=== PATIENT | male | born 1980 | race Caucasian/White ===

== ENCOUNTER 2021-10-14 09:34 | Day surgery (SDC) | payer OTHER ==
[~2021-10-14] VITALS: Ht 177.8 cm; Wt 61.3 kg
[~2021-10-14 09:34] MED LIST: HYDROmorphone 2 MG/ML INJ. IVP PRN; IV RINGERS,LACTATED 1000ML 1,000 ML IV SCH; MORPHINE SULFATE 2 MG/ML INJ. IVP PRN; PROCHLORPERAZINE 10 MG/2 ML VIAL. IVP PRN; ceFAZolin SODIUM IV Push 1 GM VIAL. IVP PRN; fentaNYL PF VIAL 100 MCG/2 ML VIAL IVP PRN
[2021-10-14] MEDS ORDERED: HYDR200T5 PO (10:12)
[2021-10-14] MEDS ORDERED: DEXAMETHASONE SOD PHOS 4 MG/ML VIAL ONE (11:52)
[2021-10-14] MEDS ORDERED: PROPOFOL 10 MG/ML (20ML) VIAL. IV ONE (11:52)
[2021-10-14] MEDS ORDERED: LIDOCAINE 1% PF 5 ML VIAL. ONE (11:53)
[2021-10-14] MEDS ORDERED: fentaNYL PF VIAL 100 MCG/2 ML VIAL ONE (11:54)
[2021-10-14] MEDS ORDERED: ROCURONIUM 50 MG/5 ML VIAL. ONE (11:56)
[2021-10-14] MEDS ORDERED: ONDANSETRON PF 4 MG/2 ML VIAL. ONE (11:57)
[2021-10-14] MEDS ORDERED: KETOROLAC 30 MG/ML VIAL. ONE (11:57)
[2021-10-14] MEDS ORDERED: MIDAZOLAM HCL/PF 2 MG/2 ML VIAL. ONE (11:58)
[2021-10-14] MEDS ORDERED: NEOSTIGMINE METHYLSULFATE 5 MG/5 ML SYRINGE. ONE (11:59)
[2021-10-14] MEDS ORDERED: GLYCOPYRROLATE 1 MG/5 ML VIAL. ONE (11:59)
[2021-10-14] MEDS ORDERED: SEVOFLURANE 61 TO 120 MINUTES. IH ONE (12:46)
[2021-10-14] MEDS ORDERED: BUPIVACAINE-EPI 0.25%-1:200000 MPF 30 ML VIAL. ONE (13:14)
--- NOTE | 2021-10-14 13:31 | PDOC4 ---
Operative Note Operative Note Operative Note: Preoperative Diagnosis: Ventral hernia, umbilical hernia Postoperative Diagnosis: Same Procedure: Ventral hernia repair with mesh, umbilical hernia repair Surgeon: Marcus Family Caseworker: Derek MELISSA Anesthesia: General EBL: 10 mL Specimen: None Drains: None Complications: None Indication: The patient is a 41-year-old male who was referred with a small hernia noted superior to the umbilicus. Examination also revealed a small hernia at the umbilicus. The plan is to proceed with repair of both hernias. The risks of surgery were discussed which include bleeding, infection, recurrence, pain, anesthetic risk, potential need for additional surgery procedure. He understands and would like to proceed. Description: The patient was taken the operating room and placed supine on the operating table. General anesthesia was performed. The abdomen is prepped with ChloraPrep and draped with sterile towels, sheets, and an Ioban. A small vertical incision was made superior to the umbilicus at the location of the hernia. Cautery dissection was carried down to the fascia. The hernia was identified and consistent with a slit defect of the fascia. A preperitoneal plane was developed circumferentially with blunt dissection. A small Ventralex ST mesh was placed in this preperitoneal plane. The mesh was sutured into position with 0 Prolene in a horizontal mattress fashion. The fascial edges were then closed over the mesh with interrupted 0 Nurolon. A small curve infraumbilical incision was made in the skin with a scalpel. The umbilical tissue was elevated off the fascia exposing a very small defect. Placement of mesh would have required enlargement of the defect. We therefore elected for primary repair. The fascial edges were closed with interrupted 0 Nurolon sutures. The umbilicus was secured back to the fascia with 0 Vicryl. The subcutaneous tissue of both incision sites were approximated with 3-0 Vicryl. Skin was closed with 4-0 Monocryl and infiltrated with half percent Marcaine with epinephrine. Sterile dressings were applied. The patient tolerated procedure well and was sent to the recovery room in stable condition. At the end of the case all counts were correct. ELIF LAWRENCE MD Oct 14, 2021 13:31
[2021-10-14] MEDS ORDERED: OXYC1TAB15 PO (13:34)
--- NOTE | 2021-10-14 13:36 | DISCH ---
DISCHARGE INSTRUCTIONS Condition on Discharge Condition on Discharge: Stable Activity After Discharge Activity Instructions for Disc: Other, see below (No lifting over 20 lbs X 4 weeks) Diet after Discharge Diet after Discharge: Regular Wound Incision Care Wound/Incision Care: Other, see below (keep dressings clean and dry X 72 hours, may then remove and shower) Follow-Up Follow up with: Dr Lawrence in office in 2 weeks, call for appointment [phone] ELIF LAWRENCE MD Oct 14, 2021 13:36
[2021-10-14] MEDS ORDERED: oxyCODONE/APAP 5/325 1 TAB TABLET PO ONE (14:00)
[2021-10-14 14:40] VITALS: BP 127/80
== END 2021-10-14 14:51 | disposition home or self-care (01) ==
LOC: SURG 09:34
PROVIDERS: ATTEND Surgery
DX: K43.9 Ventral hernia without obstruction or gangrene (principal); K42.9 Umbilical hernia without obstruction or gangrene; Z79.899 Other long term (current) drug therapy; Z98.890 Other specified postprocedural states; Z87.891 Personal history of nicotine dependence; Z88.2 Allergy status to sulfonamides
CPT/HCPCS: 49560; 49568; 49585; J0690; J1100; J1885; J2250; J2405; J2704; J2710; J3010; J3490; A4364; A4452; A4930; A6402; C1781